=== PATIENT | female | born 1955 | race Caucasian/White ===

== ENCOUNTER 2016-07-24 16:47 | Emergency (ER) | payer BC ==
[~2016-07-24 16:47] MED LIST: ALLEGRA30 MG PO; AUGMENTIN 875-1 EAC1 PO; BENADRYL25 MG/TA1 PO; CYMBALTA60 MG PO; FLEXERIL 10MG PO; GLUCOPHAGE500 MG PO; HYDROCHLOROTHIA25 MG PO; LORTAB 7.5-3251 EACH PO; PRILOSEC OTC20 MG PO; RAMIPRIL10 MG PO; TOPROL XL50 MG PO; ULTRAM50 MG PO; VITAMIN D-50000 IU/C PO; ZETIA10 MG PO; ZOCOR20 MG PO; ZYRTEC10 M3 PO
[2016-07-24] MEDS ORDERED: LASIX40 M1 PO (18:35)
[2016-07-24] MEDS ORDERED: SINGULAIR10 M1 PO (18:35)
[2016-07-24] MEDS ORDERED: NASACORT10.8 M1 (18:36)
[2016-07-24] MEDS ORDERED: KEFLEX500 M4 PO (19:09)
== END 2016-07-24 19:25 ==
LOC: EDMED 16:47
DX: T81.31XA Disruption of external operation (surgical) wound, not elsewhere classified, initial encounter (principal); Z88.2 Allergy status to sulfonamides